=== PATIENT | female | born 1975 | race Caucasian/White ===

== ENCOUNTER → 2018-02-20 | Outpatient (CLI) | payer BC | END | disposition home or self-care (01) | LOC: SHCH 13:41 | PROVIDERS: ATTEND Internal Medicine Cardiovascular Disease | DX: I10 Essential (primary) hypertension (principal); R00.2 Palpitations | CPT/HCPCS: 93306 ==

== ENCOUNTER 2018-03-14 07:15 | Day surgery (SDC) | payer BC ==
[2018-03-12 12:15] VITALS: BP 140/65
[2018-03-12 12:18] LABS: BASOPHILS % (AUTO) 0.7 % (0.0-5.0); EOSINOPHILS % (AUTO) 2.8 % (0.0-8.0); MEAN CORPUSCULAR HEMOGLOBIN 28.2 pg (27.0-33.0); MEAN CORPUSCULAR HGB CONC 32.8 g/dL (32.0-36.0); MEAN CORPUSCULAR VOLUME 86.1 fL (79-99); MONOCYTES % (AUTO) 5.5 % (3.0-13.0); PLATELET COUNT (AUTO) 196 K/uL (130-400); RED BLOOD CELL COUNT(AUTO) 4.88 MIL/uL (4.00-5.50)
[2018-03-12 12:20] LABS: APPEARANCE,URINE Clear (CLEAR); BILIRUBIN,URINE Negative (NEGATIVE); COLOR,URINE Yellow (YELLOW); GLUCOSE, URINE (UA) Negative (NEGATIVE); KETONES,URINE Negative (NEGATIVE); LEUKOCYTE ESTERASE ,URINE Negative (NEGATIVE); NITRATE,URINE Negative (NEGATIVE); OCCULT BLOOD,URINE Negative (NEGATIVE); PH,URINE 6.5 (5.0-8.0); PROTEIN,URINE Negative (NEGATIVE); UROBILINOGEN,URINE 0.2 mg/dL (0.2-1.0)
[2018-03-12 12:37] LABS: INR 0.89 (0.85-1.15); PARTIAL THROMBOPLASTIN TIME 26.1 SEC (26.3-35.5); PROTHROMBIN TIME 9.4 SEC (9.6-11.6)
[2018-03-12 12:43] LABS: CREATININE 0.8 mg/dL (0.5-1.5); POTASSIUM 4.8 mmol/L (3.5-5.1)
[2018-03-14] VITALS (13 sets, daily range): BP systolic 111–131; BP diastolic 62–75
[~2018-03-14] VITALS: Ht 165.1 cm; Wt 100.8 kg
[~2018-03-14 07:15] MED LIST: ASPI-555 PO; ATOR40TA71 PO; CLOP75TA14 PO; LISI10TA7 PO; METO-391 PO; SODIUM CHLORIDE 0.9% 500ML 500 ML IV SCH; birth control PO
[2018-03-14] MEDS ORDERED: SODIUM CHLORIDE 0.9% 1000ML 1,000 ML IV ONE (07:27)
--- NOTE | 2018-03-14 08:57 | NUR ---
PROCEDURE PT HERE FOR PROCEDURE. NO PAIN AT THIS TIME. AT BEDSIDE.
[2018-03-14] MEDS ORDERED: IOHEXOL-350 50ML VIAL IV ONE (09:35)
[2018-03-14] MEDS ORDERED: BIVALIRUDIN 250 MG/VIAL IV ONE (09:35)
[2018-03-14] MEDS ORDERED: NITROGLYCERIN 5 MG/ML 10 ML VIAL IV ONE (09:35)
[2018-03-14] MEDS ORDERED: IOHEXOL 350 MG/ML 100ML INFUS..BTL IV ONE (09:35)
[2018-03-14] MEDS ORDERED: LIDOCAINE HCL 2% 20ML ONE (09:36)
--- NOTE | 2018-03-14 09:39 | NUR ---
PROCEDURE PT TAKEN TO PROCEDURE VIA BED BY Victor M HOANG RN. AT BEDSIDE.
[2018-03-14] MEDS ORDERED: MIDAZOLAM HCL 1 MG/ML 2ML VIAL ONE (10:13)
[2018-03-14] MEDS ORDERED: FENTANYL CITRATE PF 50 MCG/1 ML 2ML VIAL ONE (10:17)
[2018-03-14] MEDS ORDERED: SODIUM CHLORIDE 0.9% 1000ML 1,000 ML IV SCH (10:57)
[2018-03-14] MEDS ORDERED: FENTANYL CITRATE PF 50 MCG/1 ML 2ML VIAL IVP SCH (13:45)
--- NOTE | 2018-03-14 14:20 | NUR ---
Gave report to Hyun MOBLEY day patient nurse, no concerns voiced, adm pain as ordered by doctor Hyun Jones aware.
--- NOTE | 2018-03-14 14:20 | NUR ---
OBTAINED REPORT FROM YULIET GUY RN. INTRODUCED MYSELF TO PATIENT AND FAMILY. RIGHT GROIN SHOWS NO ACTIVE BLEEDING. PATIENT COMPLAINING OF BACK PAIN PER YULIET FU RN SHE WILL MEDICATE PATIENT FOR PAIN ORDERED BY MD.
--- NOTE | 2018-03-14 14:57 | NUR ---
CONTACTED KALPESH WITH [employer] FOR [employer] UPDATE, PER KALPESH SHE WILL CONTINUE TO PROCESS APPROVAL AND WILL LET [employer] PHONE SALESPERSON AT [facility] [place] IF APPROVED.
[2018-03-14] MEDS ORDERED: ONDANSETRON HCL 4 MG/2 ML VIAL IVP PRN (16:15)
--- NOTE | 2018-03-14 17:44 | NUR ---
[employer] HEAD PUMPER IN TO EDUCATE PATIENT AND HER SPOUSE ON USE AND HOW TO WEAR LIFE VEST.
== END 2018-03-14 18:24 | disposition home or self-care (01) ==
LOC: DAH 07:15
PROVIDERS: ATTEND Internal Medicine Cardiovascular Disease
DX: I47.2 Ventricular tachycardia (principal); I70.218 Atherosclerosis of native arteries of extremities with intermittent claudication, other extremity; Z79.01 Long term (current) use of anticoagulants; R07.9 Chest pain, unspecified; I11.0 Hypertensive heart disease with heart failure; I50.42 Chronic combined systolic (congestive) and diastolic (congestive) heart failure; E78.5 Hyperlipidemia, unspecified; Z68.37 Body mass index [BMI] 37.0-37.9, adult; Z79.899 Other long term (current) drug therapy; Z98.890 Other specified postprocedural states; Z82.49 Family history of ischemic heart disease and other diseases of the circulatory system; I25.2 Old myocardial infarction
CPT/HCPCS: 36415; 71045; 80048; 81003; 84702; 85025; 85610; 85730; 93005; 93458; C1760; C1894; J1644; J2250; J3010 ×2; J3490 ×2; J7030; Q9965; Q9967 ×2; 99156; 99157; A4606; J0583

== ENCOUNTER → 2018-06-13 | Outpatient (CLI) | payer BC ==
[~2018-06-13] MED LIST changes: -CLOP75TA14 PO; -LISI10TA7 PO; -SODIUM CHLORIDE 0.9% 500ML 500 ML IV SCH
== END | disposition home or self-care (01) ==
LOC: SHCH 08:12
PROVIDERS: ATTEND Internal Medicine Cardiovascular Disease
DX: I50.22 Chronic systolic (congestive) heart failure (principal)
CPT/HCPCS: 93306

== ENCOUNTER 2018-07-17 07:20 | Day surgery (SDC) | payer BC ==
[2018-07-16 14:57] VITALS: BP 113/65
[2018-07-16 15:16] LABS: EOSINOPHILS % (AUTO) 2.7 % (0.0-8.0); HEMATOCRIT 38.6 % (36-48); LYMPHOCYTES % (AUTO) 28.6 % (21.0-51.0); MEAN CORPUSCULAR HEMOGLOBIN 29.1 pg (27.0-33.0); MEAN CORPUSCULAR HGB CONC 33.1 g/dL (32.0-36.0); MONOCYTES % (AUTO) 5.9 % (3.0-13.0); NEUTROPHILS % (AUTO) 61.8 % (40.0-77.0); PLATELET COUNT (AUTO) 212 K/uL (130-400); RED BLOOD CELL COUNT(AUTO) 4.38 MIL/uL (4.00-5.50); RED CELL DISTRIBUTION WIDTH 13.8 % (11.0-15.5); WHITE BLOOD COUNT (AUTO) 9.4 K/uL (4.8-10.8)
--- NOTE | 2018-07-16 15:59 | NUR ---
NOTE DR. MO NOTIFIED OF PT'S CARDIAC HX (CARDIOMYOPATHY, HEART ATTACK 2017, HEART CATH 03/2018, NO STENT PLACED, CARDIAC ABLATION FOR VTAC 2000) NO CARDIAC CLEARANCE OR NOTE FROM [facility] SPECIALIST. TOLD DR. MO PT STATED THAT DR. SAUCEDO HAS BEEN TALKING TO [facility] SPECIALIST. REPORTED TO DR. MO PREVIOUS EKG DONE IN 03/2018. NO FURTHER ORDERS. OKAY TO PROCEED WITH PLANNED PROCEDURE.
[~2018-07-17] VITALS: Ht 162.6 cm; Wt 98.0 kg
[2018-07-17] VITALS (14 sets, daily range): BP systolic 119–138; BP diastolic 62–71
[~2018-07-17 07:20] MED LIST changes: -ATOR40TA71 PO; +LACTATED RINGERS 1000ML 1,000 ML IV SCH; -birth control PO
[2018-07-17] MEDS ORDERED: PROPOFOL 10 MG/ML 20ML VIAL IV ONE (09:17)
[2018-07-17] MEDS ORDERED: FENTANYL CITRATE PF 50 MCG/1 ML 2ML VIAL ONE (09:17)
[2018-07-17] MEDS ORDERED: LIDOCAINE PF 2% 5ML ABBOJECT ONE (09:17)
[2018-07-17] MEDS ORDERED: OXYTOCIN 10 USP UNITS/ML ONE ×2 (09:57→10:02)
[2018-07-17] MEDS ORDERED: CALDOLOR 800MG+NS 250ML 250 ML IV ONE (09:57)
--- NOTE | 2018-07-17 11:20 | NUR ---
Received pt from ITZ Tobar. Pt awake, alert and comfortable. Pt denies any pain. Small amount of dark red bleeding to esperanza-pad.
--- NOTE | 2018-07-17 11:55 | NUR ---
Pt discharged home, tolerating fluids well, ambulating well, voided prior to discharge. Pt denies any severe pain, nausea, or dizziness. Some moderate amount of bleeding noted, but not excessive. Pt instructed on signs of excessive bleeding/infection and reminded to notify doctor if any signs of excessive bleeding/infection presented. Prescription given to spouse. Pt and spouse report no further questions at this time.
== END 2018-07-17 11:55 | disposition home or self-care (01) ==
LOC: DAH 07:20
DX: O02.0 Blighted ovum and nonhydatidiform mole (principal); I42.9 Cardiomyopathy, unspecified; Z98.890 Other specified postprocedural states; Z79.899 Other long term (current) drug therapy; I10 Essential (primary) hypertension; K21.9 Gastro-esophageal reflux disease without esophagitis; Z79.82 Long term (current) use of aspirin
CPT/HCPCS: 36415; 59812; 84702; 84703; 85025; 86850; 86900; 86901; A4351; J1741; J2001; J2590 ×2; J2704; J3010; J7030

== ENCOUNTER → 2018-08-18 | Outpatient (CLI) | payer BC ==
[~2018-08-18] MED LIST changes: -LACTATED RINGERS 1000ML 1,000 ML IV SCH
== END | disposition home or self-care (01) ==
LOC: EDBD → SHCH 07:38
PROVIDERS: ATTEND Internal Medicine Cardiovascular Disease
DX: I25.2 Old myocardial infarction (principal); I95.2 Hypotension due to drugs
CPT/HCPCS: 78481; A9512

== ENCOUNTER → 2018-09-09 | Outpatient (CLI) | payer BC ==
[~2018-09-09] MED LIST changes: +IOHEXOL 350 MG/ML 100ML INFUS..BTL IV ONE; +IOHEXOL-350 50ML VIAL IV ONE; +IOHEXOL-350 75 ML VIAL IV ONE
== END | disposition home or self-care (01) ==
LOC: EDBD 07:39 → RAH 07:39 → EDBD 08:00
PROVIDERS: ATTEND Internal Medicine Cardiovascular Disease
DX: I73.9 Peripheral vascular disease, unspecified (principal); K76.0 Fatty (change of) liver, not elsewhere classified; N32.89 Other specified disorders of bladder
CPT/HCPCS: 75635; Q9967 ×4

== ENCOUNTER 2018-12-21 21:16 | Observation (INO) | payer BC ==
[~2018-12-21] VITALS: Ht 162.6 cm; Wt 99.8 kg
[~2018-12-21 21:16] MED LIST changes: -IOHEXOL 350 MG/ML 100ML INFUS..BTL IV ONE; -IOHEXOL-350 50ML VIAL IV ONE; -IOHEXOL-350 75 ML VIAL IV ONE
[2018-12-21 21:58] LABS: BASOPHILS % (AUTO) 0.9 % (0.0-5.0); EOSINOPHILS % (AUTO) 1.9 % (0.0-8.0); HEMATOCRIT 40.7 % (36-48); LYMPHOCYTES % (AUTO) 26.3 % (21.0-51.0); MEAN CORPUSCULAR HEMOGLOBIN 29.5 pg (27.0-33.0); MEAN CORPUSCULAR VOLUME 86.7 fL (79-99); MONOCYTES % (AUTO) 5.5 % (3.0-13.0); NEUTROPHILS % (AUTO) 65.4 % (40.0-77.0); NUCLEATED RED BLOOD CELLS 0.1 % (0.0-0.19); PLATELET COUNT (AUTO) 202 K/uL (130-400); RED CELL DISTRIBUTION WIDTH 13.7 % (11.0-15.5); WHITE BLOOD COUNT (AUTO) 13.7 K/uL (4.8-10.8)
[2018-12-21] MEDS ORDERED: NITROGLYCERIN 1GM/1 INCH PACKET TD ONE (22:02)
[2018-12-21] MEDS ORDERED: AMIODARONE HCL 50 MG/ML 3 ML VIAL ONE (22:02)
[2018-12-21] MEDS ORDERED: ASPIRIN 325 MG TABLET ONE (22:02)
[2018-12-21 22:18] LABS: CREATININE 0.8 mg/dL (0.5-1.5); POTASSIUM 3.4 mmol/L (3.5-5.1)
[2018-12-21 22:20] LABS: INR 0.89 (0.85-1.15); PARTIAL THROMBOPLASTIN TIME 25.4 SEC (26.3-35.5); PROTHROMBIN TIME 9.4 SEC (9.6-11.6)
[2018-12-21 22:25] LABS: ALBUMIN 3.6 g/dL (3.5-5.0); BILIRUBIN,TOTAL 0.2 mg/dL (0.2-1.0); TOTAL PROTEIN, SERUM 7.4 g/dL (6.0-8.3)
[2018-12-21 22:30] LABS: CREATINE KINASE, TOTAL 140 U/L (21-232); MYOGLOBIN 69 ng/mL (10-92); TROPONIN I < 0.04 ng/mL (0.00-0.06)
[2018-12-21] MEDS ORDERED: POTASSIUM CHLORIDE 20 MEQ ERTAB PO ONE (22:34)
[2018-12-21] MEDS ORDERED: MAGNESIUM OXIDE 400 MG TABLET PO ONE (22:34)
[2018-12-21 23:02] LABS: APPEARANCE,URINE Clear (CLEAR); BILIRUBIN,URINE Negative (NEGATIVE); COLOR,URINE Yellow (YELLOW); GLUCOSE, URINE (UA) Negative (NEGATIVE); KETONES,URINE Negative (NEGATIVE); LEUKOCYTE ESTERASE ,URINE Negative (NEGATIVE); NITRATE,URINE Negative (NEGATIVE); OCCULT BLOOD,URINE Negative (NEGATIVE); PH,URINE 5.5 (5.0-8.0); PROTEIN,URINE Negative (NEGATIVE); UROBILINOGEN,URINE 0.2 mg/dL (0.2-1.0)
[2018-12-21 23:07] LABS: HCG,QUAL RESULT NEGATIVE (NEGATIVE)
[2018-12-21 23:13] LABS: AMPHET/METH SCREEN,URINE NEGATIVE (NEGATIVE); BARBITURATE SCREEN, URINE NEGATIVE (NEGATIVE); BENZODIAZEPINES SCREEN,URINE NEGATIVE (NEGATIVE); CANNABINOID SCREEN,URINE NEGATIVE (NEGATIVE); COCAINE SCREEN,URINE NEGATIVE (NEGATIVE); OPIATE SCREEN,URINE NEGATIVE (NEGATIVE); PHENCYCLIDINE SCREEN,URINE NEGATIVE (NEGATIVE)
[2018-12-21] MEDS ORDERED: ONDANSETRON HCL 4 MG/2 ML VIAL IV PRN (23:30)
[2018-12-21] MEDS ORDERED: ACETAMINOPHEN 325 MG TAB PO PRN ×2 (23:30)
[2018-12-21] MEDS ORDERED: NITROGLYCERIN 0.4 MG SL TAB SL PRN (23:30)
[2018-12-21 23:42] LABS: HEMOGLOBIN A1C 5.5 % (4.0-6.0)
[2018-12-21] MEDS ORDERED: POTASSIUM CHLORIDE 10MEQ/100ML 100 ML IV PRN (23:45)
[2018-12-21] MEDS ORDERED: POTASSIUM CHLORIDE 10% ELIXIR 20 MEQ/15 ML UDCUP PO PRN (23:45)
[2018-12-21] MEDS ORDERED: POTASSIUM CHLORIDE 20 MEQ ERTAB PO PRN (23:45)
[2018-12-21] MEDS ORDERED: LIDOCAINE HCL-MPF 1% 2ML VIAL IV PRN (23:45)
[2018-12-22 00:03] LABS: THYROID STIMULATING HORMONE 3.87 uIU/mL (0.36-3.74)
[2018-12-22 00:25] VITALS: BP 118/74
--- NOTE | 2018-12-22 00:25 | NUR ---
ADMISSION. PT ADMITTED INTO ROOM 408 FROM ER, TRANSFERRED VIA W/C. PT AWAKE, ALERT AND RESPONSIVE, NO C/O CHEST PAIN OR DISCOMFORT AT THIS TIME. PT AND FAMILY AT BEDSIDE ORIENTED TO ROOM. CALL JEFFERS WITHIN REACH. Addendum: 12/22/18 at 0055 by JACK RAINEY RN Amended: Links added.
[2018-12-22 03:50] VITALS: BP 116/75
[2018-12-22 06:01] LABS: CREATINE KINASE, TOTAL 128 U/L (21-232); MYOGLOBIN 59 ng/mL (10-92); TROPONIN I < 0.04 ng/mL (0.00-0.06)
[2018-12-22 08:00] VITALS: BP 126/75
[2018-12-22] MEDS ORDERED: ATORVASTATIN CALCIUM 20 MG TABLET PO SCH ×2 (08:45→21:00)
[2018-12-22 08:46] LABS: HEMATOCRIT 38.3 % (36-48); MEAN CORPUSCULAR HEMOGLOBIN 29.4 pg (27.0-33.0); MEAN CORPUSCULAR HGB CONC 33.8 g/dL (32.0-36.0); NUCLEATED RED BLOOD CELLS 0.1 % (0.0-0.19); PLATELET COUNT (AUTO) 183 K/uL (130-400); RED BLOOD CELL COUNT(AUTO) 4.41 MIL/uL (4.00-5.50); RED CELL DISTRIBUTION WIDTH 14.3 % (11.0-15.5); WHITE BLOOD COUNT (AUTO) 11.1 K/uL (4.8-10.8)
[2018-12-22] MEDS ORDERED: ASPIRIN 325 MG TABLET PO SCH (09:00)
[2018-12-22] MEDS ORDERED: FAMOTIDINE 20MG TAB 20 MG TAB PO SCH (09:00)
[2018-12-22] MEDS ORDERED: ENOXAPARIN SODIUM 40 MG/0.4 ML SYRINGE SQ SCH (09:00)
[2018-12-22] MEDS ORDERED: METOPROLOL TARTRATE 25 MG TAB PO SCH (09:00)
[2018-12-22 10:55] LABS: CREATINE KINASE, TOTAL 134 U/L (21-232); MYOGLOBIN 60 ng/mL (10-92); TROPONIN I < 0.04 ng/mL (0.00-0.06)
[2018-12-22 11:31] VITALS: BP 120/76
[2018-12-22] MEDS ORDERED: ASPI-555 PO (12:29)
[2018-12-22] MEDS ORDERED: CEPH250C3 PO (12:29)
--- NOTE | 2018-12-22 13:00 | NUR ---
CM NOTES CHART REVIEWED- PT IN OBS STATUS WITH NO TRIGGERS TO CM AND NO CONCERNS VOICED, DUE FOR DISCHARGE, DETIALED CM ASSESSMENT DEFERRED Addendum: 12/22/18 at 1626 by NORMA HAN RN CM Amended: Links added.
--- NOTE | 2018-12-22 14:14 | NUR ---
patient given discharge instruction and verbalized understanding . iv removed with catheter intact, pressure held to site then site dressed. monitor unit notified of patient discharge status and telemetry unit removed. medications reviewed with patient and follow-up appointments. no questions or concerns at this time . patient walked with staff and to lobby.
== END 2018-12-22 14:14 | disposition home or self-care (01) ==
LOC: EDH 21:16 → EDHIP 23:22 → 4BH 12-22 00:18 → 4CH 12-22 08:27 → 4DH 12-22 08:47
PROVIDERS: ADMIT Internal Medicine; ATTEND Internal Medicine
DX: M94.0 Chondrocostal junction syndrome [Tietze] (principal); I10 Essential (primary) hypertension; E87.6 Hypokalemia; E83.42 Hypomagnesemia; I49.9 Cardiac arrhythmia, unspecified; R00.0 Tachycardia, unspecified; E78.5 Hyperlipidemia, unspecified; D72.829 Elevated white blood cell count, unspecified; I25.2 Old myocardial infarction; T46.6X5A Adverse effect of antihyperlipidemic and antiarteriosclerotic drugs, initial encounter; Z87.42 Personal history of other diseases of the female genital tract; Z95.818 Presence of other cardiac implants and grafts; Z79.82 Long term (current) use of aspirin; Z79.899 Other long term (current) drug therapy; X58.XXXA Exposure to other specified factors, initial encounter; Y92.89 Other specified places as the place of occurrence of the external cause
CPT/HCPCS: 36415 ×2; 71045; 80053; 80061; 80305; 81003; 81025; 82550 ×3; 83036; 83735; 83874 ×3; 83880; 84443; 84484 ×4; 84702; 85025; 85027; 85610; 85730; 93005 ×2; 96372; 99284; G0378 ×15; J0282; J1650

== ENCOUNTER → 2020-10-25 | Outpatient (CLI) | payer BC ==
[~2020-10-25] MED LIST changes: -ASPI-555 PO; +ASPI-556 PO; +CEPH250C3 PO
== END | disposition home or self-care (01) ==
LOC: SHCH 15:34
PROVIDERS: ATTEND Internal Medicine Cardiovascular Disease
DX: I25.2 Old myocardial infarction (principal)
CPT/HCPCS: 93306; 93356

== ENCOUNTER → 2024-09-29 | Outpatient (CLI) | payer BC ==
[~2024-09-29] VITALS: Ht 162.6 cm; Wt 108.0 kg
[~2024-09-29] MED LIST changes: +DAPA5TAB PO; +ERGO500093 PO; +METO-408 PO; +SACU1TAB PO; +SPIR25TA6 PO
[2024-09-29 13:01] LABS: IMMATURE GRANULOCYTE ABSOLUTE 0.06 K/uL (0-1); NUCLEATED RED BLOOD CELLS 0.0 % (0.0-0.19); PLATELET COUNT (AUTO) 236 K/uL (130-400); RED BLOOD CELL COUNT(AUTO) 4.96 MIL/uL (4.00-5.50); RED CELL DISTRIBUTION WIDTH 13.7 % (11.0-15.5); WHITE BLOOD COUNT (AUTO) 10.5 K/uL (4.8-10.8)
[2024-09-29 13:20] VITALS: BP 145/79; PULSE 60; RESP 18; TEMP 97.1
[2024-09-29 13:24] LABS: INR 0.97 (0.85-1.15)
[2024-09-29 13:25] LABS: APPEARANCE,URINE CLEAR (CLEAR); GLUCOSE, URINE (UA) >=1000 mg/dL (NEGATIVE); LEUKOCYTE ESTERASE ,URINE NEGATIVE Leu/uL (NEGATIVE); NITRATE,URINE NEGATIVE (NEGATIVE); OCCULT BLOOD,URINE NEGATIVE (NEGATIVE)
[2024-09-29 13:31] LABS: CREATININE 0.8 mg/dL (0.5-1.0); GLOMERULAR FILTR. RATE CALC 91.0 mL/min (>90); GLUCOSE,RANDOM 105.0 mg/dL (70-105); SODIUM SERUM 139.0 mmol/L (136-145); UREA NITROGEN, BLOOD 10.0 mg/dL (7-18)
[2024-09-29 13:37] LABS: ADD UA MICROSCOPIC YES
[2024-09-29 13:42] LABS: SQUAMOUS EPITHELIAL CELL,UR RARE /HPF (0-2)
--- NOTE | 2024-09-29 13:58 | EKG ---
[facility] Test Date: 2024-09-29 Test Time: 12:48:14 Pat Name: EREN NEWTON Department: [facility] Room: Gender: F Clinical Outcomes Manager: [id number] : 1975 Requested By: MATEUS JAMES Order Number: [id number] Reading MD: Alex Mejia Measurements Intervals [place] Rate: 69 P: 19 TN: 151 QRS: -6 QRSD: 85 T: 13 QT: 419 QTc: 447 Interpretive Statements Sinus rhythm Ventricular premature complex Probable left atrial enlargement Probable left ventricular hypertrophy Anterior Q waves, possibly due to LVH Compared to ECG 12/22/2018 10:14:41 Ventricular premature complex(es) now present Q waves now present Sinus bradycardia no longer present T-wave abnormality no longer present Electronically Signed On 09-30-2024 18:53:38 CDT by Alex Mejia Please click the below link to view image of tracing.
--- NOTE | 2024-09-29 14:43 | HMCIMG ---
CHEST 1VW REASON: PRE OP COMPARISON: Study from 12/21/2018 is available FINDINGS: Single view of the chest was obtained. Lungs are clear. Heart size is normal. There is no pulmonary vascular congestion. Mediastinum and bony thorax appear unremarkable. IMPRESSION: 1. Normal single view chest x-ray.
== END | disposition home or self-care (01) ==
LOC: LAB 12:07 → EDSTATUS 10-02 12:00
PROVIDERS: ATTEND Internal Medicine Cardiovascular Disease
DX: Z01.818 Encounter for other preprocedural examination (principal); I49.3 Ventricular premature depolarization; I50.42 Chronic combined systolic (congestive) and diastolic (congestive) heart failure; R00.1 Bradycardia, unspecified
CPT/HCPCS: 36415; 71045; 80048; 81001; 83880; 84703; 85025; 85610; 85730; 93005

== ENCOUNTER → 2025-01-23 | Outpatient (CLI) | payer BC ==
[~2025-01-23] MED LIST changes: -ASPI-556 PO; -CEPH250C3 PO; -METO-391 PO
== END | disposition home or self-care (01) ==
LOC: RAH 10:31
PROVIDERS: ATTEND Obstetrics & Gynecology
DX: Z12.31 Encounter for screening mammogram for malignant neoplasm of breast (principal)
CPT/HCPCS: 77067